=== PATIENT | female | born 1995 | race American Indian/Alaskan Native ===

== ENCOUNTER 2019-02-24 02:08 | Emergency (ER) | payer OTHER ==
--- NOTE | 2019-02-24 03:48 | XRay Report ---
CERVICAL SPINE, 3 VIEWS, 02/24/2019 INDICATION / CLINICAL INFORMATION: neck pain. COMPARISON: None FINDINGS: Vertebral body heights and disc spaces are maintained. Alignment is normal. No significant degenerati ve change. No visible fracture. Visualized lung apices are grossly clear. IMPRESSION: No significant skeletal abnormality. Signer Name: Celia Armenta MD Signed: 02/24/2019 2:44 AM Workstation Name: [id number]
[2019-02-24] MEDS ORDERED: TYLENOL PO ONE (06:03)
[2019-02-24] MEDS ORDERED: IBUPROFEN PO ONE (06:04)
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
[2019-02-24 07:22] VITALS: BP 121/70
== END 2019-02-24 07:20 | disposition home or self-care (01) ==
LOC: ED 02:08
DX: M54.2 Cervicalgia (principal); M62.830 Muscle spasm of back; Z79.1 Long term (current) use of non-steroidal anti-inflammatories (NSAID); V89.2XXA Person injured in unspecified motor-vehicle accident, traffic, initial encounter; Y93.89 Activity, other specified; Y92.488 Other paved roadways as the place of occurrence of the external cause; Y99.8 Other external cause status
CPT/HCPCS: 72040; 99283